=== PATIENT | male | born 1950 | race Caucasian/White ===

== ENCOUNTER → 2017-04-12 | Outpatient (REF) | payer MEDICARE, OTHER ==
[~2017-04-12] MED LIST: ADVIL; ASPI81TA83 OR; FISH1000 OR; FLAX PO; MOTRIN; MULTIVIT PO; PRIL20CA OR; PSYLLIUM PO; VITA100T86 PO; VITA500T OR; VITATAB PO; VITATAB11 PO; [UNRECOGNIZED DRUG - CODE] OR; vitamin
[2017-04-12 11:58] LABS: BASO % 0.4 % (0.0-1.0); EOS # 0.1 K/mm3 (0.0-0.50); EOS % 2.4 % (0.0-3.0); LARGE UNSTAINED CELL # 0.2 K/mm3 (0.0-0.4); LARGE UNSTAINED CELL % 2.8 % (0.0-4.0); LYMPH # 1.7 K/mm3 (1.5-4.5); LYMPH % 26.8 % (24.0-44.0); MEAN CORPUSCULAR HEMOGLOBIN 32.2 pg (27.0-33.0); MEAN CORPUSCULAR HGB CONC 33.9 g/dl (32.0-36.5); MONO # 0.5 K/mm3 (0.0-0.8); MONO % 8.1 % (0.0-5.0); NEUTROPHILS # 3.5 K/mm3 (1.8-7.7); NEUTROPHILS % 59.4 % (36.0-66.0); PLATELET COUNT, AUTOMATED 255 k/mm3 (150-450); RED CELL DISTRIBUTION WIDTH 13.6 % (11.5-14.5); WHITE BLOOD COUNT 5.9 K/mm3 (4.0-10.0)
[2017-04-12 12:48] LABS: ALBUMIN 3.7 GM/DL (3.2-5.2); ALBUMIN/GLOBULIN RATIO 1.23 (1.00-1.93); ALKALINE PHOSPHATASE 83 U/L (45-117); ALT/SGPT 24 U/L (12-78); ANION GAP 9 MEQ/L (8-16); AST/SGOT 24 U/L (15-37); BILIRUBIN,TOTAL 0.7 MG/DL (0.2-1.0); BLOOD UREA NITROGEN 17 MG/DL (7-18); CALCIUM LEVEL 8.5 MG/DL (8.8-10.2); CARBON DIOXIDE LEVEL 26 MEQ/L (21-32); CHLORIDE LEVEL 108 MEQ/L (98-107); CREATININE FOR GFR 0.91 MG/DL (0.70-1.30); GLOMERULAR FILTRATION RATE > 60.0 (>49); GLUCOSE, FASTING 76 MG/DL (80-110); POTASSIUM SERUM 4.3 MEQ/L (3.5-5.1); SODIUM LEVEL 143 MEQ/L (136-145); TOTAL PROTEIN 6.7 GM/DL (6.4-8.2)
== END ==
LOC: M SFHCPLAZ 09:53
PROVIDERS: ATTEND Physician Assistant
DX: D64.89 Other specified anemias (principal); R53.83 Other fatigue; Z92.3 Personal history of irradiation

== ENCOUNTER → 2017-04-20 | Outpatient (REF) | payer MEDICARE, OTHER | LOC: M SFHCPLAZ 09:40 | PROVIDERS: ATTEND Physician Assistant | DX: E78.5 Hyperlipidemia, unspecified (principal); Z12.5 Encounter for screening for malignant neoplasm of prostate | CPT/HCPCS: 80061; G0103 ==

== ENCOUNTER → 2017-05-08 | Outpatient (REF) | payer MEDICARE, BC, OTHER | LOC: M SFHCPLAZ 15:56 | PROVIDERS: ATTEND Dermatology | DX: L82.1 Other seborrheic keratosis (principal) | CPT/HCPCS: 11100; 88305; G0463 ==

== ENCOUNTER → 2018-04-16 | Outpatient (REF) | payer MEDICARE, OTHER ==
[2018-04-16 12:15] LABS: BASO % 0.4 % (0.0-1.0); EOS # 0.1 10^3/uL (0.0-0.50); EOS % 2.7 % (0.0-3.0); HEMATOCRIT 41.2 % (42.0-52.0); HEMOGLOBIN 13.9 g/dl (13.5-17.5); IMMATURE GRANULOCYTE % 0.2 % (0-3.0); LYMPH # 1.5 10^3/uL (1.5-4.5); MEAN CORPUSCULAR HEMOGLOBIN 31.7 pg (27.0-33.0); MEAN CORPUSCULAR HGB CONC 33.7 g/dl (32.0-36.5); MEAN CORPUSCULAR VOLUME 94.1 fl (80.0-96.0); MONO # 0.5 10^3/uL (0.0-0.8); MONO % 10.7 % (0.0-5.0); NEUTROPHILS # 2.7 10^3/uL (1.8-7.7); PLATELET COUNT, AUTOMATED 233 10^3/uL (150-450); RED BLOOD COUNT 4.38 10^6/uL (4.30-6.10); RED CELL DISTRIBUTION WIDTH 14.1 % (11.5-14.5); WHITE BLOOD COUNT 4.8 10^3/uL (4.0-10.0)
[2018-04-16 12:37] LABS: ALBUMIN 3.7 GM/DL (3.2-5.2); ALBUMIN/GLOBULIN RATIO 1.19 (1.00-1.93); ALKALINE PHOSPHATASE 90 U/L (45-117); ALT/SGPT 20 U/L (12-78); ANION GAP 6 MEQ/L (8-16); AST/SGOT 21 U/L (7-37); BLOOD UREA NITROGEN 17 MG/DL (7-18); CALCIUM LEVEL 8.5 MG/DL (8.8-10.2); CARBON DIOXIDE LEVEL 28 MEQ/L (21-32); CHLORIDE LEVEL 110 MEQ/L (98-107); CHOLESTEROL LEVEL 182 MG/DL (<200); CREATININE FOR GFR 0.72 MG/DL (0.70-1.30); GLOMERULAR FILTRATION RATE > 60.0 (>49); GLUCOSE, FASTING 78 MG/DL (70-100); HDL CHOLESTEROL 91 MG/DL (>40); LDL CHOLESTEROL 83.4 MG/DL (<100); NON-HDL-C 91 MG/DL; POTASSIUM SERUM 4.3 MEQ/L (3.5-5.1); PSA SCREENING 0.73 NG/ML (< 4.0); SODIUM LEVEL 144 MEQ/L (136-145); TOTAL PROTEIN 6.8 GM/DL (6.4-8.2); TRIGLYCERIDES LEVEL 38 MG/DL (<150)
== END ==
LOC: M SFHCPLAZ 09:09
DX: D64.89 Other specified anemias (principal); E78.5 Hyperlipidemia, unspecified; Z12.5 Encounter for screening for malignant neoplasm of prostate; Z92.3 Personal history of irradiation
CPT/HCPCS: 84443

== ENCOUNTER → 2019-04-22 | Outpatient (REF) | payer MEDICARE, OTHER ==
[2019-04-22 12:10] LABS: BASO % 0.4 % (0.0-1.0); EOS # 0.1 10^3/uL (0.0-0.50); EOS % 2.6 % (0.0-3.0); HEMATOCRIT 44.4 % (42.0-52.0); HEMOGLOBIN 14.9 g/dl (13.5-17.5); LYMPH # 1.5 10^3/uL (1.5-4.5); LYMPH % 30.8 % (24.0-44.0); MEAN CORPUSCULAR HEMOGLOBIN 32.3 pg (27.0-33.0); MEAN CORPUSCULAR HGB CONC 33.6 g/dl (32.0-36.5); MEAN CORPUSCULAR VOLUME 96.3 fl (80.0-96.0); MONO # 0.5 10^3/uL (0.0-0.8); MONO % 9.4 % (0.0-5.0); NEUTROPHILS # 2.8 10^3/uL (1.8-7.7); NEUTROPHILS % 56.6 % (36.0-66.0); PLATELET COUNT, AUTOMATED 235 10^3/uL (150-450); RED BLOOD COUNT 4.61 10^6/uL (4.30-6.10); WHITE BLOOD COUNT 4.9 10^3/uL (4.0-10.0)
[2019-04-22 12:41] LABS: ALBUMIN 3.7 GM/DL (3.2-5.2); ALT/SGPT 23 U/L (12-78); BILIRUBIN,TOTAL 0.8 MG/DL (0.2-1.0); BLOOD UREA NITROGEN 18 MG/DL (7-18); CALCIUM LEVEL 8.6 MG/DL (8.8-10.2); CARBON DIOXIDE LEVEL 29 MEQ/L (21-32); CHLORIDE LEVEL 106 MEQ/L (98-107); CHOLESTEROL LEVEL 198 MG/DL (<200); CHOLESTEROL RISK RATIO 2.675 (<5); GLOMERULAR FILTRATION RATE > 60.0 (>42); GLUCOSE, FASTING 84 MG/DL (70-100); HDL CHOLESTEROL 74 MG/DL (>40); LDL CHOLESTEROL 111 MG/DL (<100); NON-HDL-C 124 MG/DL; POTASSIUM SERUM 4.6 MEQ/L (3.5-5.1); SODIUM LEVEL 141 MEQ/L (136-145); TOTAL PROTEIN 7.2 GM/DL (6.4-8.2); TRIGLYCERIDES LEVEL 65 MG/DL (<150)
== END ==
LOC: M SFHCPLAZ 10:20
PROVIDERS: ATTEND Physician Assistant Medical
DX: D64.9 Anemia, unspecified (principal); E78.5 Hyperlipidemia, unspecified; Z12.5 Encounter for screening for malignant neoplasm of prostate; Z92.3 Personal history of irradiation
CPT/HCPCS: 80053; 80061; 84443; 85025; G0103

== ENCOUNTER 2023-06-12 06:06 | Emergency (ER) | payer MEDICARE, BC, OTHER ==
[~2023-06-12] VITALS: Ht 175.3 cm; Wt 76.4 kg
[2023-06-12] MEDS ORDERED: CYCL5TAB (06:14)
[2023-06-12] MEDS ORDERED: PRED10TA2 (06:14)
[2023-06-12 09:39] VITALS: BP 122/71; TEMP 98.7; O2SAT 94
== END 2023-06-12 09:45 | disposition home or self-care (01) ==
LOC: M ED 06:06
DX: N43.3 Hydrocele, unspecified (principal); I86.1 Scrotal varices; M54.30 Sciatica, unspecified side; Z79.52 Long term (current) use of systemic steroids; Z79.899 Other long term (current) drug therapy

== ENCOUNTER → 2025-03-05 | Outpatient (CLI) | payer MEDICARE, BC ==
[~2025-03-05] MED LIST changes: +CYCL5TAB4; +PRED10TA2
== END ==
LOC: M RAD 12:43
PROVIDERS: ATTEND Surgery
DX: M53.3 Sacrococcygeal disorders, not elsewhere classified (principal); M16.11 Unilateral primary osteoarthritis, right hip; M47.816 Spondylosis without myelopathy or radiculopathy, lumbar region; M47.818 Spondylosis without myelopathy or radiculopathy, sacral and sacrococcygeal region

== ENCOUNTER 2025-03-07 16:50 | Emergency (ER) | payer MEDICARE, BC ==
[~2025-03-07] VITALS: Ht 175.3 cm; Wt 76.7 kg
[2025-03-07 16:54] VITALS: TEMP 97.4
[2025-03-07 17:32] LABS: BASO % 0.3 % (0.0-1.0); EOS # 0.1 10^3/uL (0.0-0.5); EOS % 0.7 % (0.0-3.0); HEMATOCRIT 42.6 % (42.0-52.0); HEMOGLOBIN 14.4 g/dl (13.5-17.5); LYMPH # 1.4 10^3/uL (1.5-5.0); LYMPH % 18.1 % (24.0-44.0); MEAN CORPUSCULAR HEMOGLOBIN 31.4 pg (27.0-33.0); MEAN CORPUSCULAR HGB CONC 33.8 g/dl (32.0-36.5); MEAN CORPUSCULAR VOLUME 92.8 fl (80.0-96.0); MONO # 0.5 10^3/uL (0.0-0.8); MONO % 7.2 % (2.0-8.0); NEUTROPHILS # 5.5 10^3/uL (1.5-8.5); NEUTROPHILS % 73.4 % (36.0-66.0); PLATELET COUNT, AUTOMATED 233 10^3/uL (150-450); RED BLOOD COUNT 4.59 10^6/uL (4.30-6.10); WHITE BLOOD COUNT 7.5 10^3/uL (4.0-10.0)
[2025-03-07 17:59] LABS: CK-MB VALUE MASS 1.5 NG/ML (<3.6)
[2025-03-07 18:01] LABS: ALBUMIN 4.1 G/DL (3.2-5.2); ALKALINE PHOSPHATASE 98 U/L (40-129); ALT/SGPT 20 U/L (7.0-40); AST/SGOT 23 U/L (<34); BILIRUBIN,DIRECT 0.3 MG/DL (<0.4); BLOOD UREA NITROGEN 13 MG/DL (9-23); CALCIUM LEVEL 9.4 MG/DL (8.3-10.6); CARBON DIOXIDE LEVEL 27 MMOL/L (20-31); CHLORIDE LEVEL 106 MMOL/L (98-107); CREATININE FOR GFR 0.67 MG/DL (0.70-1.30); GLOMERULAR FILTRATION RATE > 90.0 (>42); GLUCOSE, FASTING 92 MG/DL (74-106); POTASSIUM SERUM 4.3 MMOL/L (3.5-5.1); SODIUM LEVEL 144 MMOL/L (136-145); TOTAL PROTEIN 7.2 G/DL (5.7-8.2)
[2025-03-07 18:04] LABS: CPK CREATINE PHOSPHOKINASE 87 U/L (46-171); MB/CK RELATIVE INDEX 1.72 (< OR =4)
[2025-03-07 19:03] LABS: CK-MB VALUE MASS 1.1 NG/ML (<3.6)
[2025-03-07 19:06] LABS: MB/CK RELATIVE INDEX 1.54 (< OR =4)
[2025-03-07 20:15] VITALS: BP 112/60; O2SAT 96
== END 2025-03-07 20:49 | disposition home or self-care (01) ==
LOC: M ED 16:50
DX: R55 Syncope and collapse (principal); I34.1 Nonrheumatic mitral (valve) prolapse

== ENCOUNTER → 2025-03-13 | Outpatient (REF) | payer MEDICARE, BC ==
[2025-03-13 18:02] LABS: BLOOD UREA NITROGEN 17 MG/DL (9-23); CALCIUM LEVEL 9.6 MG/DL (8.3-10.6); CARBON DIOXIDE LEVEL 28 MMOL/L (20-31); CHLORIDE LEVEL 102 MMOL/L (98-107); GLOMERULAR FILTRATION RATE > 90.0 (>42); GLUCOSE, FASTING 90 MG/DL (74-106); POTASSIUM SERUM 4.4 MMOL/L (3.5-5.1); SODIUM LEVEL 139 MMOL/L (136-145)
== END ==
LOC: M LAB REF 17:33
PROVIDERS: ATTEND Physician Assistant
DX: R06.09 Other forms of dyspnea (principal)

== ENCOUNTER → 2025-03-30 | Outpatient (CLI) | payer MEDICARE, BC ==
[2025-03-30 12:15] LABS: BASO % 0.3 % (0.0-1.0); EOS # 0.1 10^3/uL (0.0-0.5); HEMATOCRIT 44.3 % (42.0-52.0); HEMOGLOBIN 14.7 g/dl (13.5-17.5); LYMPH # 1.3 10^3/uL (1.5-5.0); LYMPH % 17.9 % (24.0-44.0); MEAN CORPUSCULAR HGB CONC 33.2 g/dl (32.0-36.5); MEAN CORPUSCULAR VOLUME 96.3 fl (80.0-96.0); MONO # 0.5 10^3/uL (0.0-0.8); MONO % 7.7 % (2.0-8.0); NEUTROPHILS # 5.1 10^3/uL (1.5-8.5); NEUTROPHILS % 72.8 % (36.0-66.0); PLATELET COUNT, AUTOMATED 221 10^3/uL (150-450)
[2025-03-30 12:43] LABS: ALBUMIN 4.1 G/DL (3.2-5.2); ALKALINE PHOSPHATASE 91 U/L (40-129); ALT/SGPT 16 U/L (7.0-40); AST/SGOT 22 U/L (<34); BILIRUBIN,TOTAL 1.3 MG/DL (0.3-1.2); BLOOD UREA NITROGEN 16 MG/DL (9-23); CALCIUM LEVEL 9.7 MG/DL (8.3-10.6); CARBON DIOXIDE LEVEL 31 MMOL/L (20-31); CHLORIDE LEVEL 106 MMOL/L (98-107); CHOLESTEROL LEVEL 200 MG/DL (<200); CHOLESTEROL RISK RATIO 2.74 (<5); CREATININE FOR GFR 0.76 MG/DL (0.70-1.30); GLOMERULAR FILTRATION RATE > 90.0 (>42); GLUCOSE, FASTING 88 MG/DL (74-106); HDL CHOLESTEROL 72.8 MG/DL (>40); LDL CHOLESTEROL 114.2 MG/DL (<100); MAGNESIUM LEVEL 2.2 MG/DL (1.8-2.4); NON-HDL-C 127.2 MG/DL; POTASSIUM SERUM 4.7 MMOL/L (3.5-5.1); SODIUM LEVEL 145 MMOL/L (136-145); TRIGLYCERIDES LEVEL 65 MG/DL (<150)
[2025-03-31 11:11] LABS: LDL DIRECT 110 mg/dL (<100)
[2025-03-31 15:37] LABS: NT PRO BNP SO 114 pg/mL (<450)
== END ==
LOC: M LAB 11:28
PROVIDERS: ATTEND Internal Medicine Cardiovascular Disease
DX: I50.22 Chronic systolic (congestive) heart failure (principal); R55 Syncope and collapse; R94.31 Abnormal electrocardiogram [ECG] [EKG]; I48.0 Paroxysmal atrial fibrillation; E78.2 Mixed hyperlipidemia; Z13.1 Encounter for screening for diabetes mellitus

== ENCOUNTER 2025-05-29 10:36 | Emergency (ER) | payer MEDICARE, BC ==
[2025-05-29 11:37] LABS: BASO # 0.0 10^3/uL (0.0-0.2); BASO % 0.3 % (0.0-1.0); EOS # 0.3 10^3/uL (0.0-0.5); EOS % 2.1 % (0.0-3.0); LYMPH # 1.1 10^3/uL (1.5-5.0); LYMPH % 8.3 % (24.0-44.0); MONO # 1.0 10^3/uL (0.0-0.8); MONO % 7.6 % (2.0-8.0); NEUTROPHILS # 10.6 10^3/uL (1.5-8.5); NEUTROPHILS % 80.9 % (36.0-66.0); PLATELET COUNT, AUTOMATED 621 10^3/uL (150-450)
[2025-05-29 11:48] LABS: INR 0.9
[2025-05-29] MEDS ORDERED: VITA500C24 PO (11:52)
[2025-05-29] MEDS ORDERED: POTA10CA70 PO (11:52)
[2025-05-29] MEDS ORDERED: THERTAB52 PO (11:52)
[2025-05-29] MEDS ORDERED: FERR325T3 PO (11:52)
[2025-05-29] MEDS ORDERED: HYDR-3713 PO (11:52)
[2025-05-29] MEDS ORDERED: CLOP75TA2 PO (11:52)
[2025-05-29] MEDS ORDERED: ASPI81TA26 PO (11:52)
[2025-05-29] MEDS ORDERED: CHOL125C6 PO (11:52)
[2025-05-29] MEDS ORDERED: FURO20TA2 PO (11:52)
[2025-05-29] MEDS ORDERED: METO25TA4 PO (11:52)
[2025-05-29] MEDS ORDERED: ATOR40TA75 PO (11:52)
[2025-05-29] MEDS ORDERED: SENN8.6T28 PO (11:52)
[2025-05-29] MEDS ORDERED: COLC0.6T47 PO (11:52)
[2025-05-29] MEDS ORDERED: ACID1CAP5 PO (11:52)
[2025-05-29] MEDS ORDERED: MELA10CA6 PO (11:52)
[2025-05-29 12:16] LABS: CALCIUM LEVEL 9.0 MG/DL (8.3-10.6); CARBON DIOXIDE LEVEL 26 MMOL/L (20-31); CHLORIDE LEVEL 101 MMOL/L (98-107); CREATININE FOR GFR 0.57 MG/DL (0.70-1.30); GLOMERULAR FILTRATION RATE > 90.0 (>42); POTASSIUM SERUM 4.7 MMOL/L (3.5-5.1); SODIUM LEVEL 139 MMOL/L (136-145)
[2025-05-29 12:58] LABS: KETONE, URINE AUTO RFX NEGATIVE (NEGATIVE); NITRITE, URINE AUTO RFX NEGATIVE (NEGATIVE); RBC, URINE AUTO RFX 29 /HPF (0-3); SQUAM EPITHELIAL CELL UR AURFX 0 /HPF (0-6)
[2025-05-29 12:59] LABS: LEUKOCYTE ESTERASE UR AUTO RFX 1+ (NEGATIVE); WBC, URINE AUTO RFX 47 /HPF (0-3)
[2025-05-29] MEDS ORDERED: COLA1TAB PO (14:57)
[2025-05-29] MEDS ORDERED: FOLI1TAB11 PO (14:57)
[2025-05-29] MEDS ORDERED: ACET1TAB55 PO (14:57)
[2025-05-29] MEDS ORDERED: HOME MED LIST COMPLETE! XX SCH (15:00)
[2025-05-29] MEDS ORDERED: CIPR500T39 PO (15:58)
[2025-05-29 16:54] VITALS: BP 105/68; TEMP 98.2; O2SAT 98
[2025-05-29] MEDS: CIPROFLOXACIN 500 MG TABLET PO ONE (17:25)
== END 2025-05-29 17:26 | disposition home or self-care (01) ==
LOC: M ED 10:36
DX: N39.0 Urinary tract infection, site not specified (principal); D75.839 Thrombocytosis, unspecified; I50.9 Heart failure, unspecified; J90 Pleural effusion, not elsewhere classified; N32.89 Other specified disorders of bladder; Z79.82 Long term (current) use of aspirin; Z79.1 Long term (current) use of non-steroidal anti-inflammatories (NSAID); Z79.899 Other long term (current) drug therapy

== ENCOUNTER → 2025-06-18 | Outpatient (CLI) | payer MEDICARE, BC ==
[~2025-06-18] MED LIST changes: +ACET1TAB55 PO; +ACID1CAP5 PO; +ASPI81TA26 PO; +ATOR40TA75 PO; +CHOL125C6 PO; +CIPR500T39 PO; +CLOP75TA2 PO; +COLA1TAB PO; +COLC0.6T47 PO; +FERR325T3 PO; +FOLI1TAB11 PO; +FURO20TA2 PO; +HYDR-3713 PO; +ISOVUE-370 76% 100 ML VIAL ONE; +MELA10CA6 PO; +METO25TA4 PO; +POTA10CA70 PO; +SENN8.6T28 PO; +THERTAB52 PO; +VITA500C24 PO
== END ==
LOC: M PLAIMG 09:01
PROVIDERS: ATTEND Physician Assistant
DX: K76.89 Other specified diseases of liver (principal); J47.9 Bronchiectasis, uncomplicated; J98.11 Atelectasis; K80.20 Calculus of gallbladder without cholecystitis without obstruction
CPT/HCPCS: 74178; Q9967

== ENCOUNTER → 2025-07-02 | Outpatient (REF) | payer MEDICARE, BC ==
[~2025-07-02] MED LIST changes: -ISOVUE-370 76% 100 ML VIAL ONE
[2025-07-02 17:32] LABS: APPEARANCE, URINE CLOUDY (CLEAR); BACTERIA, URINE AUTO NEGATIVE (NEGATIVE); BILIRUBIN, URINE AUTO NEGATIVE (NEGATIVE); BLOOD, URINE BLOOD NEGATIVE (NEGATIVE); CALCIUM OXALATE CRYSTALS SMALL; GLUCOSE, URINE (UA) AUTO NEGATIVE (NEGATIVE); KETONE, URINE AUTO TRACE mg/dL (NEGATIVE); LEUKOCYTE ESTERASE, URINE AUTO 2+ (NEGATIVE); MUCUS, URINE LARGE (NEGATIVE); NITRITE, URINE AUTO NEGATIVE (NEGATIVE); PROTEIN, URINE AUTO 1+ mg/dL (NEGATIVE); RBC, URINE AUTO 7 /HPF (0-3); SPECIFIC GRAVITY URINE AUTO 1.026 (1.002-1.035); SQUAMOUS EPITHELIAL CELL UR AU 0 /HPF (0-6); UROBILINOGEN, URINE AUTO 0.2 mg/dL (0.0-2.0); WBC, URINE AUTO 114 /HPF (0-3)
== END ==
LOC: M SMT 17:05
PROVIDERS: ATTEND Physician Assistant
DX: N39.0 Urinary tract infection, site not specified (principal); R31.0 Gross hematuria

== ENCOUNTER → 2025-08-17 | Outpatient (REF) | payer MEDICARE, BC ==
[~2025-08-17] MED LIST changes: -COLC0.6T47 PO; +COLC0.6T53 PO
[2025-08-17 15:55] LABS: APPEARANCE, URINE CLOUDY (CLEAR); BACTERIA, URINE AUTO NEGATIVE (NEGATIVE); BILIRUBIN, URINE AUTO NEGATIVE (NEGATIVE); BLOOD, URINE BLOOD NEGATIVE (NEGATIVE); GLUCOSE, URINE (UA) AUTO NEGATIVE (NEGATIVE); KETONE, URINE AUTO NEGATIVE (NEGATIVE); LEUKOCYTE ESTERASE, URINE AUTO TRACE (NEGATIVE); MUCUS, URINE SMALL (NEGATIVE); NITRITE, URINE AUTO NEGATIVE (NEGATIVE); PROTEIN, URINE AUTO NEGATIVE (NEGATIVE); RBC, URINE AUTO 3 /HPF (0-3); SPECIFIC GRAVITY URINE AUTO 1.014 (1.002-1.035); SQUAMOUS EPITHELIAL CELL UR AU 0 /HPF (0-6); UROBILINOGEN, URINE AUTO 0.2 mg/dL (0.0-2.0); WBC, URINE AUTO 1 /HPF (0-3)
== END ==
LOC: M SMT 15:14
PROVIDERS: ATTEND Physician Assistant
DX: Z87.898 Personal history of other specified conditions (principal)